=== PATIENT | female | born 1985 | race African-American/Black ===

== ENCOUNTER 2022-04-26 23:54 | Emergency (ER) | payer MEDICAID, OTHER ==
[~2022-04-26] VITALS: Ht 170.2 cm; Wt 77.0 kg
[2022-04-26 23:57] VITALS: BP 109/70
== END 2022-04-27 00:34 | disposition home or self-care (01) ==
LOC: ER 23:54
DX: U07.1 COVID-19 (principal); J45.909 Unspecified asthma, uncomplicated; F10.10 Alcohol abuse, uncomplicated
CPT/HCPCS: 99283